=== PATIENT | female | born 2000 | race Two or more races ===

== ENCOUNTER 2020-06-02 08:24 | Emergency (ER) | payer MEDICAID, SELFPAY ==
[2020-06-02 08:43] VITALS: BP 133/64; PULSE 89; RESP 15; TEMP 36.1; O2SAT 99; BMI 32.9
--- NOTE | 2020-06-02 08:54 | ED.URI ---
HPI - URI/Sore Throat General Chief Complaint: Upper Respiratory Symptoms <NIKOLAI Walton Last Filed: 06/02/20 16:01> Stated Complaint: cough <NIKOLAI Walton Last Filed: 06/02/20 16:01> Time Seen by Provider: 06/02/20 08:53 <NIKOLAI Walton Last Filed: 06/02/20 16:01> Source: patient <NIKOLAI Walton Last Filed: 06/02/20 16:01> Mode of arrival: ambulatory <NIKOLAI Walton Last Filed: 06/02/20 16:01> Limitations: no limitations <NIKOLAI Walton Filed: 06/02/20 16:01> History of Present Illness HPI Narrative: Patient presents to ED for dry cough, sore throat, and body aches. Patient states no recent travel outside the country or going across state lines. Patient states her also having URI symptoms. Patient states no chest pain or shortness of breath. <NIKOLAI Walton Last Filed: 06/02/20 16:01> Related Data Allergies/Adverse Reactions: Allergies Allergy/AdvReac Type Severity Reaction Status Date / Time No Known Allergies Allergy Unverified 04/02/20 19:50 [No Known Allergies*] <NIKOLAI Walton Last Filed: 06/02/20 16:01> Review of Systems Review of Systems: Yes all other systems are reviewed and are negative <NIKOLAI Walton Last Filed: 06/02/20 16:01> Constitutional: Constitutional: Reports as per HPI, Reports no additional constitutional complaints, Reports body ache(s) and Reports chills <NIKOLAI Walton Last Filed: 06/02/20 16:01> Eyes: Eyes: Reports as per HPI and Reports no additional eye complaints <NIKOLAI Walton Last Filed: 06/02/20 16:01> ENT: Reports system reviewed and no additional complaints, except as documented, Reports as per HPI and Reports sore throat <NIKOLAI Walton Last Filed: 06/02/20 16:01> Cardiovascular: Cardiovascular: Reports as per HPI, Reports no additional cardiovascular complaints and Denies dyspnea <NIKOLAI Walton Last Filed: 06/02/20 16:01> Respiratory: Respiratory: Reports as per HPI, Reports no additional respiratory complaints, Reports cough, Denies pain on inspiration, Denies pain with cough and Denies dyspnea <NIKOLAI Walton - Last Filed: 06/02/20 16:01> Gastrointestinal: Gastrointestinal: Reports as per HPI and Reports no additional gastrointestinal complaints <NIKOLAI Walton Last Filed: 06/02/20 16:01> Genitourinary: Genitourinary: Reports no additional female genitourinary complaints and Reports as per HPI <NIKOLAI Walton Last Filed: 06/02/20 16:01> Musculoskeletal: Musculoskeletal: Reports no additional musculoskeletal complaints and Reports as per HPI <NIKOLAI Walton Last Filed: 06/02/20 16:01> Neurologic: Reports system reviewed and no additional complaints, except as documented and Reports as per HPI <NIKOLAI Walton Last Filed: 06/02/20 16:01> Psychiatric: Psychiatric: Reports no additional psychiatric complaints and Reports as per HPI <NIKOLAI Walton - Last Filed: 06/02/20 16:01> [facility] Social History Social History: Social History Advance Directives: No Advance Directives Information Provided: Yes <NIKOLAI Walton - Last Filed: 06/02/20 16:01> Physical Exam Vital Signs: Vital Signs: Last Vital Signs Temp 97 F 06/02/20 08:43 Pulse 89 06/02/20 08:43 Resp 15 06/02/20 08:43 BP 133/64 06/02/20 08:43 Pulse Ox 99 06/02/20 08:43 Body Mass Index 32.9 <NIKOLAI Walton - Last Filed: 06/02/20 16:01> Vital Signs: Last Vital Signs Temp 97 F 06/02/20 08:43 Pulse 89 06/02/20 08:43 Resp 15 06/02/20 08:43 BP 133/64 06/02/20 08:43 Pulse Ox 99 06/02/20 08:43 Body Mass Index 32.9 <Lance Norwood MD - Last Filed: 06/08/20 15:57> Const: General: cooperative, healthy appearing, comfortable, no acute distress, well developed and alert <NIKOLAI Walton Last Filed: 06/02/20 16:> Orientation/consciousness: patient oriented x3 <NIKOLAI Walton Filed: 06/02/20 16:> HENMT: Head: Yes normal to inspection, Yes No palpable skull fracture present, Yes atraumatic, No contusion, No hematoma and No Temporal artery tenderness present <NIKOLAI Walton Last Filed: 06/02/20 16:> Ears: hearing grossly normal bilaterally, external ears normal and TM's normal bilaterally <Tim Gleason [facility] [place] Last Filed: 06/02/20 16:> Throat: Yes posterior oropharynx normal, Yes tonsils normal and Yes uvula midline <NIKOLAI Walton Filed: 06/02/20 16:> Eyes: General: appearance normal, both eyes and all related structures <NIKOLAI Walton Filed: 06/02/20 16:> Visual Carmona: normal visual carmona by confrontation <NIKOLAI Walton Filed: 06/02/20 16:01> Neck: Neck: Yes normal visual inspection, Yes full ROM, Yes no lymphadenopathy, Yes no meningeal signs, Yes trachea midline and No tender <NIKOLAI Walton Filed: 06/02/20 16:> Chest: Chest palpation & inspection: normal inspection of the chest and normal palpation of entire chest wall <NIKOLAI Walton Filed: 06/02/20 16:> Resp: Effort & Inspection: normal respiratory effort and not able to speak in complete sentences <NIKOLAI Walton Filed: 06/02/20 16:> Auscultation: clear to auscultation bilaterally, no crackles, no rales, no rhonchi and no wheezes <NIKOLAI Walton Filed: 06/02/20 16:> Cardio: Jugular venous distension: no JVD <NIKOLAI Walton Filed: 06/02/20 16:> Heart sounds: S1 normal heart sound present and S2 normal heart sound present <NIKOLAI Walton Filed: 06/02/20 16:01> GI: Inspection: Yes normal to inspection and No abdominal wall ecchymosis <NIKOLAI Walton Last Filed: 06/02/20 16:01> Palpation (GI): Soft to palpation, not firm, nontender, no guarding and not rigid <NIKOLAI Walton Last Filed: 06/02/20 16:01> : General: No CVA tenderness and Yes no CVA tenderness <NIKOLAI Walton Last Filed: 06/02/20 16:01> Back/Spine/Pelvis: Back: no CVA tenderness, No CVA tenderness and No back tenderness <NIKOLAI Walton Last Filed: 06/02/20 16:01> Skin: General skin exam: no rashes or lesions noted <NIKOLAI Walton Last Filed: 06/02/20 16:01> Neuro: General: patient oriented x3, gait normal, no meningeal signs and CN's II-XI intact bilaterally <NIKOLAI Walton Last Filed: 06/02/20 16:01> Cranial nerves: Yes CN's II-XII intact bilaterally <NIKOLAI Walton Last Filed: 06/02/20 16:01> Extrem: General: Yes normal to inspection and Yes full ROM <NIKOLAI Walton Last Filed: 06/02/20 16:01> Psych: Appearance: grossly normal, well kempt and not disheveled <NIKOLAI Walton Last Filed: 06/02/20 16:01> Course Course Course Narrative: Patient will have COVID swab sent. Chest x-ray not indicated. Patient vital signs are stable. <NIKOLAI Walton Last Filed: 06/02/20 16:01> I have reviewed the chart <Lance Norwood MD - Last Filed: 06/08/20 15:57> Reevaluation(s) Reevaluation #1: Patient educated on self-isolation. Patient is swabbed for the COVID-19 virus. <NIKOLAI Walton Last Filed: 06/02/20 16:01> Time: 08:57 <NIKOLAI Walton Last Filed: 06/02/20 16:01> MDM - URI/Sore Throat MDM Narrative Medical decision making narrative: viral syndrome. URI <NIKOLAI Walton Last Filed: 06/02/20 16:01> Lab Data Labs: Lab Results 06/02/20 Range/Units 09:14 COVID-19 PCR NOT DETECTED (NOT DETECTED) <NIKOLAI Walton - Last Filed: 06/02/20 16:01> Lab Results 06/02/20 Range/Units 09:14 COVID-19 PCR NOT DETECTED (NOT DETECTED) <Lance Norwood MD - Last Filed: 06/08/20 15:57> Discharge Plan Discharge Clinical Impression: Upper respiratory infection <NIKOLAI Walton - Last Filed: 06/02/20 16:01> Patient Disposition: Home, Self-Care <NIKOLAI Walton - Last Filed: 06/02/20 16:01> Instructions: Upper Respiratory Infection (ED), Viral Syndrome (ED) <NIKOLAI Walton - Last Filed: 06/02/20 16:01> Additional Instructions: return to the ED for any chest pain, shortness of breath, weakness, intractable fever, chills, or any other concerning symptoms. Please follow-up with your PCP. recommend 14 days self-isolation if COVID test come back positive <NIKOLAI Walton - Last Filed: 06/02/20 16:01> Stand Alone Forms: Work/School Release <NIKOLAI Walton - Last Filed: 06/02/20 16:01> Interventions: ED Discharge Assessment Last Done: 06/02/20 09:20 <NIKOLAI Walton - Last Filed: 06/02/20 16:01> Discharge Date/Time: 06/02/20 09:26 <NIKOLAI Walton - Last Filed: 06/02/20 16:01> Print Language: Kinyarwanda <NIKOLAI Walton - Last Filed: 06/02/20 16:01>
== END 2020-06-02 09:26 | disposition home or self-care (01) ==
PROVIDERS: Physician Assistant; Emergency Provider Emergency Medicine
DX: J06.9 Acute upper respiratory infection, unspecified (principal); B34.9 Viral infection, unspecified; R05 Cough; M79.10 Myalgia, unspecified site; Z20.828 Contact with and (suspected) exposure to other viral communicable diseases
CPT/HCPCS: 99283; U0003

== ENCOUNTER 2020-07-11 23:06 | Emergency (ER) | payer MEDICAID, SELFPAY ==
[2020-07-11 23:08] VITALS: BP 146/75; PULSE 98; RESP 18; TEMP 36.9; O2SAT 98; BMI 29.9
[2020-07-12 00:36] LABS: Glucose Urine UA NEG (NEG); Leukocyte Esterase Urine NEG (NEG); Nitrite Urine NEG (NEG); PH 6.5 (5.0-8.0); Specific Gravity - Urine 1.025 (1.005-1.025); Urine Blood TRACE (NEG); Urine Ketones NEG (NEG); Urine Protein NEG (NEG-TRACE)
[2020-07-12 00:40] LABS: Appearance Urine CLEAR; Color Urine YELLOW
[2020-07-12 00:44] LABS: Bacteria Urine TRACE /LPF; Squamous Epithelial Cell Urine TRACE /LPF
[2020-07-12 00:45] LABS: UPreg QC Valid YES; Urine Pregnancy NEGATIVE (NEGATIVE)
--- NOTE | 2020-07-12 00:58 | CT_ITS ---
EXAMINATION: CT ABDOMEN AND PELVIS WITH CONTRAST CLINICAL INFORMATION: Right lower quadrant and suprapubic pain. COMPARISON: None. TECHNIQUE: Contiguous axial thin section helical images of the abdomen and pelvis were performed following the administration of 85 mL of intravenous Omnipaque 350. The data set was reformatted in the coronal and sagittal planes and reviewed on an independent workstation. DLP: 757 mGy-cm. FINDINGS: The visualized lung bases are clear. The visualized portions of the heart are unremarkable. The liver is of normal size and attenuation without focal lesions nor intrahepatic biliary ductal dilation. A normal gallbladder is identified. There is no wall thickening or discernible pericholecystic fluid. The spleen, pancreas, adrenal glands are unremarkable. Both kidneys are of normal size and attenuation without hydronephrosis or nephrolithiasis. Following the administration of IV contrast, prompt symmetric nephrograms are displayed. There is no abdominal free fluid. There is neither mesenteric nor retroperitoneal lymphadenopathy. Normal unopacified loops of small and large bowel are identified. A normal appendix is identified. There is a 3.1 cm left ovarian cyst. There is no pelvic free fluid. The urinary bladder is unremarkable. There is neither pelvic nor inguinal lymphadenopathy. Bone windows: Neither sclerotic nor lytic bone lesions are identified. CT/CT abdomen pelvis w con IMPRESSION: Unremarkable abdominal and pelvic CT. Automated exposure control (Care Dose) Adjustment of the mA and/or kv according to patient size (this includes techniques or standardized protocols for targeted exams where dose is matched to indication / reason for exam; i.e. extremities or head).
--- NOTE | 2020-07-12 01:01 | ED.ABDPAIN ---
HPI - Abdominal Pain General Chief Complaint: Abdominal Pain Stated Complaint: Pelvic pain Time Seen by Provider: 07/12/20 00:51 Source: patient Mode of arrival: ambulatory Limitations: no limitations History of Present Illness HPI narrative: Patient comes to emergency room complaining of 3 days of suprapubic and right lower quadrant pain. Patient states that to her knowledge, she has no history of ovarian cysts. Patient states her menstrual period is irregular, has not had a menstrual period in over 6 months, 3 days ago she thought she was having premenstrual cramps, however she is still having constant, nonradiating, pulsating abdominal pain. Patient denies dysuria. Patient also complaining of nausea, no vomiting or diarrhea. Patient states she is sexually active, concerned that she may be . Patient states she is not concerned with having a sexually transmitted disease, denies vaginal discharge Related Data Allergies Allergy/AdvReac Type Severity Reaction Status Date / Time No Known Allergies Allergy Unverified 04/02/20 19:50 [No Known Allergies*] Review of Systems Review of Systems Constitutional : No Weight loss, No Fever, No Chills, No Night Sweats, No Fatigue, No Malaise ENT/Mouth : No Hearing loss, No Ear Pain, No Nasal Congestion, No Sinus Pain, No Hoarseness, No sore throat, No Rhinorrhea, No Swallowing Difficulty Eyes: No Eye Pain, No Swelling, No Redness, No Foreign Body, No Discharge, No Vision Changes Cardiovascular : No Chest Pain, No SOB, No Dyspnea on Exertion, No Orthopnea, No Edema, No Palpitations Respiratory : No Cough, No Sputum, No Wheezing, No Smoke Exposure, No Dyspnea Gastrointestinal : Complaining of Nausea, No Vomiting, No Diarrhea, No Constipation, complaining of suprapubic and right lower quadrant pain. No Hematochezia, No Melena Genitourinary : no irregular bleeding, No Dysuria, No Urinary Frequency, No Hematuria, No Urinary Incontinence, No Urgency, No Flank Pain, No Urinary Flow Changes, No Hesitancy Musculoskeletal : No joint pain, No Myalgias, No Joint Swelling Skin : No Skin Lesions, No rash Neuro : No Weakness, No Numbness, No Paresthesias, No Loss of Consciousness, No Dizziness, No Headache Psych : No Anxiety/Panic, No Depression, No SI/HI/AH/VH, No Social Issues, Heme/Lymph: No Bruising, No Bleeding,No Lymphadenopathy Endocrine : No Polyuria, No Polydipsia, No Temperature Intolerance Physical Exam Vital Signs: Vital Signs: Last Vital Signs Temp 98.5 F 07/11/20 23:08 Pulse 98 07/11/20 23:08 Resp 18 07/11/20 23:08 BP 146/75 H 07/11/20 23:08 Pulse Ox 98 07/11/20 23:08 Body Mass Index 29.9 Appearance: Alert. Oriented X3. No acute distress. Eyes: Pupils equal, round and reactive to light. ENT: Pharynx normal. Neck: Normal inspection. Neck supple. No lymph nodes noted. No crepitus CVS: Normal heart rate and rhythm. Pulses normal. Normal S1 and S2 Respiratory: No respiratory distress. Breath sounds normal. No Wheezing. No rales Abdomen: Soft , tender to palpation over suprapubic and right lower quadrant, no rebound, no guarding, No rigidity. No distention. good BS x4 Skin: Skin warm and dry. Normal skin color. Normal skin turgor. Extremities: No lower extremity edema. No lower extremity edema. No Lacerations. No Rash Neuro: Oriented X 3. No motor deficit. No sensory deficit. Moving all extermities. No slurred speech. Course Course Course Narrative: CT scan and urinalysis pending. Sign-out given to Dr. Iverson. MDM - Abdominal Pain Lab Data Result diagrams: 07/12/20 01:12 07/12/20 01:12 Labs: Lab Results 07/12/20 07/12/20 07/12/20 Range/Units 00:29 01:12 01:12 WBC 7.6 (4.8-10.8) X10*3/uL RBC 4.63 (4.20-5.50) X10*6/uL Hgb 13.8 (12.0-16.0) g/dl Hct 40.0 (37-47) % MCV 86.4 (80-98) fL MCH 29.8 (27.0-33.0) pg MCHC 34.5 (31.0-35.0) g/dl RDW 11.9 (11.0-16.0) % Plt Count 202 (160-400) X10*3/uL MPV 10.3 (9.4-12.3) fL Immature Gran % (Auto) 0.4 (0.0-0.4) % Neut % (Auto) 59.0 (45-73) % Lymph % (Auto) 31.8 (20-40) % [place] % (Auto) 6.1 (2-11) % Eos % (Auto) 2.0 (0-4) % Baso % (Auto) 0.7 (0-2) % Lymph # (Auto) 2.4 (1.2-4.9) X10*3/uL [place] # (Auto) 0.5 (0.1-1.2) X10*3/uL Eos # (Auto) 0.2 (0.0-0.4) X10*3/uL Baso # (Auto) 0.1 (0.0-0.2) X10*3/uL Abs Immat Gran (auto) 0.03 (0.00-0.03) X10*3/uL Absolute Neuts (auto) 4.5 (2.0-8.3) X10*3/uL Absolute Nucleated RBC 0.000 (0.0-0.012) X10*3/uL Nucleated RBC % (auto) 0.0 (0.0-0.2) /100WBC Sodium 138 (135-145) mmol/L Potassium 3.9 (3.3-5.1) mmol/l Chloride 104 (96-108) mmol/L Carbon Dioxide 25 (22-29) mmol/L Anion Gap 13 (12-20) BUN 11 (9-16) mg/dL Creatinine 0.81 (0.5-1.4) mg/dL Estim Creat Clear Calc 115.9 Estimated GFR > 60 Random Glucose 91 (60-115) mg/dL Calcium 9.1 (8.4-10.2) mg/dL Total Bilirubin 0.2 (0.0-1.0) mg/dL Direct Bilirubin < 0.2 (0.0-0.5) mg/dL AST 17 (5-31) U/L ALT 18 (0-31) U/L Alkaline Phosphatase 75 (39-117) U/L Total Protein 7.1 (6.5-8.0) g/dL Albumin 4.5 (3.5-5.0) g/dL Lipase 50 (8-78) U/L Urine Color YELLOW Urine Appearance CLEAR Urine pH 6.5 (5.0-8.0) Ur Specific [place] 1.025 (1.005-1.025) Urine Protein NEG (NEG-TRACE) MG/DL Urine Glucose (UA) NEG (NEG) MG/DL Urine Ketones NEG (NEG) MG/DL Urine Blood TRACE (NEG) Urine Nitrite NEG (NEG) Ur Leukocyte Esterase NEG (NEG) Urine RBC 1-4 (0) /HPF Urine WBC 1-4 (0-4) /HPF Ur Squamous Epith Cells TRACE /LPF Urine Bacteria TRACE /LPF Urine Test NEGATIVE (NEGATIVE) Discharge Plan Discharge Clinical Impression: Abdominal pain PMFSH Past Medical History Medical History No known health problems Social History Social History Alcohol intake: never Smoking Status: Never smoker Use of substances other than those prescribed or required for medical reasons: No Advance Directives: No Advance Directives Information Provided: No
[2020-07-12 01:19] LABS: Basophils Absolute Auto 0.1 X10*3/uL (0.0-0.2); Basophils Percent Auto 0.7 % (0-2); Eosinophils Absolute Auto 0.2 X10*3/uL (0.0-0.4); Hemoglobin 13.8 g/dl (12.0-16.0); Imm Gran Abs Auto 0.03 X10*3/uL (0.00-0.03); Imm Gran Pct Auto 0.4 % (0.0-0.4); Lymphocytes Absolute Auto 2.4 X10*3/uL (1.2-4.9); Lymphocytes Percent Auto 31.8 % (20-40); MANUAL DIFF FLAG NO; Mean Corpuscular HGB Conc 34.5 g/dl (31.0-35.0); Mean Corpuscular Hemoglobin 29.8 pg (27.0-33.0); Mean Corpuscular Volume 86.4 fL (80-98); Mean Platelet Volume 10.3 fL (9.4-12.3); Monocytes Absolute Auto 0.5 X10*3/uL (0.1-1.2); Monocytes Percent Auto 6.1 % (2-11); Neutrophils Absolute Auto 4.5 X10*3/uL (2.0-8.3); Platelet Count 202 X10*3/uL (160-400); Red Blood Count 4.63 X10*6/uL (4.20-5.50); Red Cell Distribution Width 11.9 % (11.0-16.0); White Blood Count 7.6 X10*3/uL (4.8-10.8)
[2020-07-12] MEDS: Ketorolac Tromethamine 30 MG/ML VIAL IVPUSH (01:31)
[2020-07-12] MEDS: ondansetron HCL 4 MG/2 ML VIAL IVPUSH (01:32)
[2020-07-12 01:42] LABS: Alanine Aminotransferase 18 U/L (0-31); Albumin Level 4.5 g/dL (3.5-5.0); Alkaline Phosphatase 75 U/L (39-117); Anion Gap 13 (12-20); Aspartate Amino Transferase 17 U/L (5-31); Bilirubin Direct < 0.2 mg/dL (0.0-0.5); Bilirubin Total 0.2 mg/dL (0.0-1.0); Blood Urea Nitrogen 11 mg/dL (9-16); Calcium 9.1 mg/dL (8.4-10.2); Carbon Dioxide 25 mmol/L (22-29); Chloride 104 mmol/L (96-108); Creatinine Clr Calc Pharmacy 115.9; Estimated Glomerular Filt Rate > 60; Glucose Random 91 mg/dL (60-115); Lipase 50 U/L (8-78); Potassium 3.9 mmol/l (3.3-5.1); Sodium 138 mmol/L (135-145); Total Protein 7.1 g/dL (6.5-8.0)
[2020-07-12] MEDS: iohexoL 350 MG/ML 100 ML INFUS..BTL 85 ML IV (02:02)
[2020-07-12 02:53] VITALS: BP 136/64; PULSE 89; RESP 16; O2SAT 99
== END 2020-07-12 03:04 | disposition home or self-care (01) ==
PROVIDERS: Student in an Organized Health Care Education/Training Program; Emergency Provider Emergency Medicine
DX: R10.31 Right lower quadrant pain (principal)
CPT/HCPCS: 36415; 74177; 80048; 80076; 81001; 81025; 83690; 85025; 96374; 96375; 99284; J1885; J2405; Q9967

== ENCOUNTER 2020-08-19 14:11 | Outpatient (REF) | payer MEDICAID, SELFPAY ==
[2020-08-20 17:32] LABS: C. trachomatis RNA TMA NOT DETECTED (NOT DETECTED); N. gonorrhoeae RNA TMA NOT DETECTED (NOT DETECTED)
[2020-08-27 06:07] LABS: HPV 16 RNA NOT DETECTED (NOT DETECTED); HPV mRNA E6/E7 rflx Detected (Not Detected)
== END 2020-08-19 14:12 | disposition home or self-care (01) ==
LOC: HO.LAB 14:11
PROVIDERS: PCP Internal Medicine; Visit Provider Advanced Practice Midwife
DX: Z01.419 Encounter for gynecological examination (general) (routine) without abnormal findings (principal); N91.1 Secondary amenorrhea; E66.9 Obesity, unspecified
CPT/HCPCS: 36415; 87210; 87491; 87591; 87624; 87625; 88141; 88142

== ENCOUNTER 2020-08-28 09:53 | Emergency (ER) | payer MEDICAID, SELFPAY ==
--- NOTE | ~2020-08-28 | XR_ITS ---
EXAMINATION: XR FOOT, LEFT CLINICAL INFORMATION: Trauma, pain COMPARISON: None TECHNIQUE: 3 views of the left foot. FINDINGS: There is no acute or healing fracture, dislocation, or destructive process. No focal joint narrowing or erosive change. There is moderate posterior calcaneal spur. The retrocalcaneal recess is preserved. XR/XR foot LT min 3V IMPRESSION: 1. No fracture or dislocation. 2. Posterior calcaneal spur.
[2020-08-28 10:17] VITALS: BP 113/69; PULSE 77; RESP 18; TEMP 36.7; O2SAT 98; BMI 31.6
--- NOTE | 2020-08-28 10:37 | ED.LOWEXIN ---
HPI - Extremity Injury (Lower) General Chief Complaint: Extremity Injury, Lower Stated Complaint: L FOOT PAIN Time Seen by Provider: 08/28/20 10:16 Source: patient and educational interpreter Mode of arrival: ambulatory Limitations: language barrier History of Present Illness HPI Narrative: 20-year-old female here with left ankle and foot pain times several days. She denies any injury or trauma. She does note she works on her feet for long hours and has pain which is worse some at the end of the day with weight-bearing. No numbness or tingling or redness or fevers or chills. Also complaining of left shoulder and arm numbness which is intermittent and worsened while sleeping for the last 2-3 months. 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 Related Data Previous Rx's Medication Instructions Recorded medroxyprogesterone 10 mg tablet 10 mg PO DAILY #10 tab 08/21/20 cyclobenzaprine 10 mg PO TID PRN #10 tab 08/28/20 ibuprofen 600 mg PO Q8H PRN #10 tab 08/28/20 Allergies Allergy/AdvReac Type Severity Reaction Status Date / Time No Known Allergies Allergy Verified 08/19/20 14:38 [No Known Allergies*] Review of Systems Review of Systems: Yes all other systems are reviewed and are negative Constitutional: Constitutional: Reports no additional constitutional complaints, Denies body ache(s), Denies chills, Denies fever(s), Denies headache(s) and Denies weakness Eyes: Eyes: Reports no additional eye complaints and Denies change in vision ENT: Reports system reviewed and no additional complaints, except as documented, Denies dizziness, Denies headache(s), Denies nasal congestion, Denies nasal discharge and Denies neck pain Cardiovascular: Cardiovascular: Reports no additional cardiovascular complaints, Denies chest pain, Denies leg edema and Denies dyspnea Respiratory: Respiratory: Reports no additional respiratory complaints, Denies cough and Denies dyspnea Gastrointestinal: Gastrointestinal: Reports no additional gastrointestinal complaints, Denies abdominal pain, Denies diarrhea, Denies nausea and Denies vomiting Genitourinary: Genitourinary: Reports no additional female genitourinary complaints and Denies urinary incontinence Musculoskeletal: Musculoskeletal: Reports no additional musculoskeletal complaints, Denies back pain, Reports arthralgias, Denies joint swelling, Denies neck pain, Reports numbness and Reports tingling Integumentary/Breasts: Skin/Breast: Reports system reviewed and no additional complaints, except as docu and Denies rash Neurologic: Reports system reviewed and no additional complaints, except as documented, Denies Abnormal speech present, Denies dizziness, Denies headache(s), Reports numbness, Reports tingling and Denies weakness PMFSH Past Medical History Attestation statement: The following information was validated with the patient. Source: old records reviewed and nursing notes reviewed Medical History No known health problems Social History Social History (Updated 08/19/20 @ 14:39 by LILLY Aponte) Alcohol intake: never Smoking Status: Never smoker Advance Directives: No Advance Directives Information Provided: No Gender identity: female Physical Exam Vital Signs: Vital Signs: Last Vital Signs Temp 98.1 F 08/28/20 10:17 Pulse 77 08/28/20 10:17 Resp 18 08/28/20 10:17 BP 113/69 08/28/20 10:17 Pulse Ox 98 08/28/20 10:17 Body Mass Index 31.6 Const: General: cooperative, healthy appearing, comfortable and no acute distress Orientation/consciousness: patient oriented x3 Limitations: no limitations HENMT: Head: Yes normal to inspection Ears: hearing grossly normal bilaterally General nose exam: Normal external nose present Face and sinus: Yes normal facial exam Mouth: Normal oral and palatal mucosa present Throat: Yes posterior oropharynx normal Eyes: General: appearance normal, both eyes and all related structures Pupils: Equal, round and reactive pupils present Neck: Other: Full range of motion of cervical spine. Patient has tenderness over the left trapezius with a palpable muscle spasm. Neck: Yes normal visual inspection Chest: Chest palpation & inspection: normal inspection of the chest Resp: Effort & Inspection: normal respiratory effort Auscultation: clear to auscultation bilaterally Cardio: Rate: regular rate Rhythm: regular rhythm Peripheral pulses: Peripheral pulses 2+ throughout GI: Inspection: Yes normal to inspection Palpation (GI): Soft to palpation and nontender Auscultation: normal bowel sounds Back/Spine/Pelvis: Thoracic/Lumbar Spine: thoracic and lumbar spine normal to inspection Skin: General skin exam: no rashes or lesions noted Neuro: General: patient oriented x3, Normal light touch and pain sensation, no focal motor deficits and normal sensation to monofilament Cranial nerves: Yes CN's II-XII intact bilaterally, Yes Equal, round and reactive pupils present, Yes Bilaterally intact EOM present, Yes Nystagmus not present, Yes Normal facial strength present and Yes Midline tongue present Cognition (Neuro): normal cognition Speech: No Abnormal speech present Gait exam (Neuro): Normal gait present Motor exam (neuro): 5/5 motor strength present throughout Sensory Exam: Normal double simultaneous stimulation for sensation Extrem: Other: Pain to the posterior left ankle which is worsened with plantar flexion and dorsiflexion. Negative Wylie's test. No calf pain General: Yes normal to inspection Left upper extremity: normal to inspection (sensation intact. 2 +distal pulses ), full ROM and normal capillary refill; no cyanosis and no edema Course Course Course Narrative: Atraumatic left ankle pain times weeks to months, no injury or trauma. Works long hours on her feet. X-ray shows no fracture dislocation. There is an incidental finding of a posterior old heel spur. This is not likely causing the patient's pain as she does not have pain over this area. She does have tenderness over the Achilles tendon with a negative Wylie test so less likely rupture. Likely sprain. Recommend limited weight-bearing for few days and supportive care at home. Follow-up with orthopedics if no improvement in symptoms. Also complaining of intermittent numbness and tingling to the left upper extremity which is worsened at night time with no injury or trauma. Normal neurological exam. On exam has tenderness of the trapezius with palpable muscle spasm. More likely radiculopathy vs impinegement. Low concern for underlying ICH vs lesion vs CVA with normal neuro exam, length of symptoms. Reviewed worrisome signs and symptoms and when to return to the emergency department. Comfortable with discharge home. MDM - Extremity Injury (Lower) Medical Records Attestation: I reviewed the patient's medical records. Lab Data Attestation: I reviewed the patient's lab results. Imaging Data foot xray: Attestation: I personally reviewed and interpreted this imaging study as follows: Radiologist's impression: EXAMINATION: XR FOOT, LEFT CLINICAL INFORMATION: Trauma, pain COMPARISON: None TECHNIQUE: 3 views of the left foot. FINDINGS: There is no acute or healing fracture, dislocation, or destructive process. No focal joint narrowing or erosive change. There is moderate posterior calcaneal spur. The retrocalcaneal recess is preserved. XR/XR foot LT min 3V IMPRESSION: 1. No fracture or dislocation. 2. Posterior calcaneal spur. Discharge Plan Discharge Clinical Impression: Strain of Achilles tendon, Radiculopathy affecting upper extremity Patient Disposition: Home, Self-Care Instructions: Cervical Radiculopathy (ED), Ankle Strain (ED) Additional Instructions: Heat to upper extremity Ice to the ankle Rest, limit weight bearing for a few days, ice Prescriptions: New cyclobenzaprine 10 mg tablet 10 mg PO TID PRN (Reason: muscle spasm) Qty: 10 RF: 0 ibuprofen 600 mg tablet 600 mg PO Q8H PRN (Reason: pain) Qty: 10 RF: 0 No Action medroxyprogesterone [Provera] 10 mg tablet 10 mg PO DAILY Qty: 10 RF: 1 Referrals: Wil Castellon MD [Primary Care Provider] - 2 days Stand Alone Forms: Work/School Release Interventions: ED Discharge Assessment Last Done: 08/28/20 11:21 Discharge Date/Time: 08/28/20 11:22 Print Language: Salvadorean
== END 2020-08-28 11:22 | disposition home or self-care (01) ==
PROVIDERS: Emergency Provider Emergency Medicine Emergency Medical Services; PCP Internal Medicine
DX: S86.012A Strain of left Achilles tendon, initial encounter (principal); X50.3XXA Overexertion from repetitive movements, initial encounter; M54.12 Radiculopathy, cervical region; Y93.89 Activity, other specified; Y92.9 Unspecified place or not applicable; Y99.9 Unspecified external cause status
CPT/HCPCS: 73630; 99283

== ENCOUNTER → 2020-09-08 13:56 | Outpatient (BNVA) | payer MEDICAID, SELFPAY | PROVIDERS: PCP Internal Medicine; Visit Provider Obstetrics & Gynecology | DX: R87.622 Low grade squamous intraepithelial lesion on cytologic smear of vagina (LGSIL) (principal); N91.2 Amenorrhea, unspecified | CPT/HCPCS: 99212 ==

== ENCOUNTER 2020-11-05 16:48 | Emergency (ER) | payer OTHER, SELFPAY ==
--- NOTE | ~2020-11-05 | XR_ITS ---
EXAMINATION: XR KNEE, RIGHT CLINICAL INFORMATION: Right knee pain after being struck with a cart COMPARISON: None TECHNIQUE: Four views of the right knee. FINDINGS: Bones and soft tissues are normal. No fracture or joint effusion. Alignment is anatomic. Joint spaces are well maintained. No abnormal soft tissue calcification. XR/XR knee RT 4V IMPRESSION: Normal right knee.
[2020-11-05 17:08] VITALS: BP 130/73; PULSE 80; RESP 16; TEMP 36.5; O2SAT 100; BMI 29.9
--- NOTE | 2020-11-05 17:50 | ED_ITS ---
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 [age] year female who was working, patient was in a squatting position when shopping cart was pushed and hit the right knee. Patient was able to get up and walk after that. Patient is complaining of right knee pain. Related Data Previous Rx's Medication Instructions Recorded medroxyprogesterone 10 mg tablet 10 mg PO DAILY #10 tab 08/21/20 cyclobenzaprine 10 mg PO TID PRN #10 tab 08/28/20 ibuprofen 600 mg PO Q8H PRN #10 tab 08/28/20 conjugated estrogens 1.25 mg tablet 1.25 mg PO DAILY 21 Days #21 tab 09/08/20 medroxyprogesterone 10 mg tablet 10 mg PO DAILY 10 Days #10 tab 09/08/20 Allergies Allergy/AdvReac Type Severity Reaction Status Date / Time No Known Allergies Allergy Verified 09/08/20 14:38 [No Known Allergies*] Review of Systems Review of Systems: All other systems are reviewed and are negative Constitutional: Reports as per HPI and Reports no additional constitutional complaints Eyes: Reports as per HPI and Reports no additional eye complaints Reports system reviewed and no additional complaints, except as documented Cardiovascular: Reports as per HPI and Reports no additional cardiovascular complaints Respiratory: Reports as per HPI and Reports no additional respiratory complaints Gastrointestinal: Reports as per HPI and Reports no additional gastrointestinal complaints Genitourinary: Reports no additional female genitourinary complaints Musculoskeletal: Reports no additional musculoskeletal complaints Skin/Breast: Reports system reviewed and no additional complaints, except as docu Psychiatric: Reports no additional psychiatric complaints Endocrine: Reports no additional endocrine complaints Hematologic/Lymphatic: Reports no additional hematologic/lymphatic complaints Allergic/Immunologic: Reports no additional allergic/immunologic complaints Reports system reviewed and no additional complaints, except as documented and Reports Abnormal speech present [facility] Past Medical History Medical History No known health problems Family History Family History Maternal Grandmother Breast cancer Social History Social History Alcohol intake: never Smoking Status: Never smoker Advance Directives: No Advance Directives Information Provided: No Gender identity: female Physical Exam Vital Signs: Vital Signs: Last Vital Signs Temp 97.7 F 11/05/20 17:08 Pulse 80 11/05/20 17:08 Resp 16 11/05/20 17:08 BP 130/73 11/05/20 17:08 Pulse Ox 100 11/05/20 17:08 Body Mass Index 29.9 Vital signs have been reviewed as appeared to be correct. Blood pressure normal. Heart rate normal. Respiration rate normal. Temperature normal. Oxygen saturation normal. Appearance: Alert. Oriented X3. No acute distress. Head: Normal external exam. Normocephalic. Atraumatic. No [place] signs noted. No raccoon eyes noted Eyes: PERRLA. EOMI. Conjunctiva and sclera normal. Eyelids normal. ENT: TM's Normal. Pharynx normal. Uvula midline. Moist mucous membranes. No trismus noted. No drooling noted. No muffled voice noted. Neck: Normal inspection. Neck supple. FROM. No adenopathy. Thyroid Normal. No meningeal signs. No neck mass noted. CVS: Normal heart rate and rhythm. Heart sound normal. No murmurs noted. Pulses normal throughout. Respiratory: No respiratory distress. Painless inspiration. Breath sounds normal. No wheezes/rales/rhonchi noted. Chest nontender. No accessory muscle usage noted or decreased air movement noted. Abdomen: Soft and nontender. Bowel sounds normal in all 4 quadrants. No distention noted. No organomegaly noted. No visible injury noted. Back: No CVA tenderness. Full range of motion noted. Skin: Skin warm and dry. Normal skin color. Normal skin turgor. No rashes/lesions/lacerations noted. Extremities: No lower extremity edema. Extremities exhibit normal range of motion. Extremities nontender. Neuro: Oriented X 3. No motor deficit. No sensory deficit. Reflexes normal. Course Course Course Narrative: Assessment and plan. Minor injury to right knee, x-ray right knee appear unremarkable, patient is able to ambulate on toes and heels. Advised to use ice/NSAIDs p.r.n. patient can resume her normal function. MDM - Extremity Injury (Lower) Imaging Data Right knee x-ray: Radiologist's impression: No acute fracture. Discharge Plan Discharge Clinical Impression: Contusion of knee Patient Disposition: Home, Self-Care Instructions: Contusion in Adults (ED) Prescriptions: No Action medroxyprogesterone [Provera] 10 mg tablet 10 mg PO DAILY Qty: 10 RF: 1 cyclobenzaprine 10 mg tablet 10 mg PO TID PRN (Reason: muscle spasm) Qty: 10 RF: 0 ibuprofen 600 mg tablet 600 mg PO Q8H PRN (Reason: pain) Qty: 10 RF: 0 Premarin 1.25 mg tablet 1.25 mg PO DAILY 21 Days Qty: 21 RF: 0 medroxyprogesterone [Provera] 10 mg tablet 10 mg PO DAILY 10 Days Qty: 10 RF: 0 Referrals: Wil Castellon MD [Primary Care Provider] - 2 weeks
[2020-11-05 18:33] VITALS: BP 120/84; PULSE 83; RESP 18; TEMP 36.6; O2SAT 98
--- NOTE | 2020-11-05 18:50 | PC.NURSE ---
PT EVALED BY PROVIDER. XRAYS REVIEWED. PT AMBULATORY WITH STEADY GAIT. NEUROVASC INTACT.
== END 2020-11-05 18:52 | disposition home or self-care (01) ==
PROVIDERS: Emergency Provider Emergency Medicine; PCP Internal Medicine
DX: S80.01XA Contusion of right knee, initial encounter (principal); W20.8XXA Other cause of strike by thrown, projected or falling object, initial encounter; Y93.89 Activity, other specified; Y92.512 Supermarket, store or market as the place of occurrence of the external cause; Y99.0 Civilian activity done for income or pay
CPT/HCPCS: 73564; 99283

== ENCOUNTER 2021-04-21 12:19 | Outpatient (REF) | payer OTHER, SELFPAY ==
[2021-04-22 02:52] LABS: CT PCR NOT DETECTED (Not Detect.); NG PCR NOT DETECTED (Not Detect.)
[2021-04-22 10:38] LABS: BV Int Neg Control Negative (Negative); BV Int Pos Control Positive (Positive)
== END 2021-04-21 12:20 | disposition home or self-care (01) ==
LOC: HO.LAB 12:19
PROVIDERS: Visit Provider Obstetrics & Gynecology
DX: N91.2 Amenorrhea, unspecified (principal); R10.2 Pelvic and perineal pain; R87.612 Low grade squamous intraepithelial lesion on cytologic smear of cervix (LGSIL); N76.0 Acute vaginitis; B96.89 Other specified bacterial agents as the cause of diseases classified elsewhere
CPT/HCPCS: 87480; 87491; 87510; 87591; 87660; 99212

== ENCOUNTER 2021-04-21 13:11 | Outpatient (REF) | payer OTHER, SELFPAY ==
[2021-04-21 14:16] LABS: Syphilis Screen Nonreactive (Nonreactive)
[2021-04-22 05:06] LABS: HBsAGNum1 0.17 S/CO (0.00-0.99); HIV AB/AG Nonreactive (Nonreactive); HIV Num 1 0.07 S/CO (0.00-0.99); Hepatitis B Surface Antigen Negative (Negative); ~HepC Num1 0.16 S/CO (0.00-0.79); ~Hepatitis C Antibody Nonreactive (Nonreactive)
== END 2021-04-21 13:12 | disposition home or self-care (01) ==
LOC: HO.LAB 13:11
PROVIDERS: PCP Obstetrics & Gynecology; Visit Provider Obstetrics & Gynecology
DX: N76.0 Acute vaginitis (principal); B96.89 Other specified bacterial agents as the cause of diseases classified elsewhere
CPT/HCPCS: 36415; 86780; 86803; 87340; 87389

== ENCOUNTER → 2021-05-05 16:00 | Outpatient (BNVA) | payer OTHER, SELFPAY | PROVIDERS: PCP Internal Medicine; Visit Provider Obstetrics & Gynecology ==

== ENCOUNTER 2021-05-17 15:34 | Outpatient (REF) | payer OTHER, SELFPAY ==
--- NOTE | ~2021-05-17 | US_ITS ---
EXAMINATION: US PELVIS CLINICAL INFORMATION: Pelvic and perineal pain. COMPARISON: Previous CT of the abdomen and pelvis . TECHNIQUE: Ultrasound of the pelvis is performed using both transabdominal and transvaginal transducers along with Doppler. Transvaginal imaging is performed due to inadequate visualization transabdominally. FINDINGS: The uterus is anteverted and measures 8.5 x 2.5 x 5 cm in dimension. No focal uterine lesion is seen. Endometrial thickness is normal measuring 0.4 cm. The ovaries are normal in size. The right ovary measures 3.5 x 2.3 x 4.3 cm, volume 18 mL. The left ovary measures 3.7 x 2 x 2.7 cm, volume 10 mL. There are multiple small peripheral cysts or follicles seen in both ovaries. Appearance is questionable for polycystic ovarian syndrome. There is no fluid in the pelvis. US/US pelvic and transvaginal IMPRESSION: Question polycystic appearance of the ovaries. Otherwise unremarkable exam.
== END 2021-05-17 15:35 | disposition home or self-care (01) ==
LOC: HO.US 15:34
PROVIDERS: Visit Provider Obstetrics & Gynecology
DX: R10.2 Pelvic and perineal pain (principal)
CPT/HCPCS: 76830; 76856

== ENCOUNTER → 2021-05-24 14:07 | Outpatient (BNVA) | payer OTHER, SELFPAY | PROVIDERS: PCP Internal Medicine; Visit Provider Obstetrics & Gynecology ==

== ENCOUNTER → 2021-06-14 15:43 | Outpatient (BNVA) | payer OTHER, SELFPAY | PROVIDERS: Visit Provider Obstetrics & Gynecology ==

== ENCOUNTER → 2021-09-13 13:44 | Outpatient (BNVA) | payer OTHER, SELFPAY | PROVIDERS: Visit Provider Obstetrics & Gynecology ==

== ENCOUNTER → 2022-01-31 12:21 | Outpatient (BNVA) | payer OTHER, SELFPAY | PROVIDERS: PCP Internal Medicine; Visit Provider Obstetrics & Gynecology | DX: N91.2 Amenorrhea, unspecified (principal) | CPT/HCPCS: 99212 ==

== ENCOUNTER 2022-02-22 15:24 | Outpatient (REF) | payer OTHER, SELFPAY ==
[2022-02-22 16:30] LABS: HCG Quantitative < 2 mIU/mL; TSH reflex Free T4 1.56 uIU/mL (0.32-4.0)
[2022-02-23 07:17] LABS: DHEA Sulfate 301 mcg/dL (14-349)
[2022-02-23 13:36] LABS: Prolactin 7.8 ng/mL
[2022-02-26 17:27] LABS: Testosterone, Free 10.1 pg/mL (0.1-6.4); Testosterone, Total 50 ng/dL (2-45)
== END 2022-02-22 15:25 | disposition home or self-care (01) ==
LOC: HO.LAB 15:24
PROVIDERS: PCP Internal Medicine; Visit Provider Obstetrics & Gynecology
DX: L68.0 Hirsutism (principal); N91.2 Amenorrhea, unspecified
CPT/HCPCS: 36415; 82627; 83498; 84146; 84402; 84403; 84443; 84702

== ENCOUNTER → 2022-03-14 15:12 | Outpatient (BNVA) | payer OTHER, SELFPAY | PROVIDERS: PCP Internal Medicine; Visit Provider Obstetrics & Gynecology | DX: E28.2 Polycystic ovarian syndrome (principal) | CPT/HCPCS: 99212 ==

== ENCOUNTER 2022-11-30 17:05 | Emergency (ER) | payer OTHER, SELFPAY ==
--- NOTE | ~2022-11-30 | US_ITS ---
EXAMINATION:US pelvic ovarian doppler, US pelvic complete CLINICAL INFORMATION: Reason for Exam right pelvic pain COMPARISON: May 2021 LMP: June 2022 FINDINGS: UTERUS: The uterus is anteverted. Size: 7.4 x 2.7 x 4.2 cm. Uterine mass: There is no uterine mass. Cervix: Grossly unremarkable. Endometrium: No ultrasound evidence of endometrial lesion. endometrial thickness measures 0.4 cm ADNEXA: Normal Right ovary: Slightly prominent measure about 5 x 5 x 3 cm, multiple follicles. Left ovary: Slightly prominent 4 x 4 by 2 cm multiple ovarian follicles. Doppler exam: Normal Doppler flow identified in both ovaries. FREE FLUID: Trace amount of free fluid. OTHER FINDINGS: None US/US pelvic ovarian doppler IMPRESSION: * No ultrasound explanation for patient's pain symptoms. * Mildly prominent ovaries with multiple follicles. Please correlate with patient's hormonal stimulation. * No ultrasound evidence of ovarian torsion. * No free fluid in the cul-de-sac.
--- NOTE | ~2022-11-30 | CT_ITS ---
EXAMINATION: CT abdomen pelvis wo IV con CLINICAL INFORMATION: Reason for Exam right flank pain COMPARISON: No prior CT available for comparison. TECHNIQUE: Multidetector volumetric imaging was performed from the superior aspect of the liver through the pubic symphysis , noncontrasted study. Sagittal and coronal reformatted images were obtained on the technologist's workstation. This CT examination was performed using dose optimization techniques as appropriate, variously including the following: *Automated exposure control *Adjustment of mA and/or kV according to patient size (this includes techniques or standardized protocols for targeted exams where dose is matched to indication/reason for exam; i.e. extremities or head) *Use of iterative reconstruction technique DLP: 690 mGy-cm FINDINGS: LOWER THORAX: Included lung bases are clear. HEPATOBILIARY: There is 1 cm calcified granuloma right lobe of the liver. Otherwise homogeneous. GALLBLADDER: Gallbladder unremarkable. SPLEEN: Spleen top normal in size 12 cm. PANCREAS: No focal mass or ductal dilatation. STOMACH AND GASTROINTESTINAL TRACT: Stomach is distended with ingested material. There is no bowel distention or thickening. Appendix is normal in size containing air in its lumen. Excess amount of stool in the colon suggests constipation. ADRENALS: No adrenal nodules. KIDNEYS/URETERS: No hydronephrosis, stones or solid mass lesions. URINARY BLADDER: Partially decompressed. PELVIC VISCERA: Unremarkable PERITONEUM: No free air or fluid. LYMPH NODES: No lymphadenopathy. VASCULAR:Abdominal aorta normal in size, no aneurysm found. BONES, ABDOMINAL WALL AND SOFT TISSUES: Age-appropriate changes of the spine and skeletal system, no destructive osteolytic or osteosclerotic bone lesion found CT/CT abdomen pelvis wo IV con IMPRESSION: * No CT evidence of acute intra-abdominal process to explain patient's pain symptoms. No kidney stone or hydronephrosis. Normal appendix identified. * Excess amount of stool in the colon suggests constipation. * Spleen top normal in size 12 cm. * Calcified granuloma right lobe of the liver.
--- NOTE | ~2022-11-30 | US_ITS ---
EXAMINATION:US pelvic ovarian doppler, US pelvic complete CLINICAL INFORMATION: Reason for Exam right pelvic pain COMPARISON: May 2021 LMP: June 2022 FINDINGS: UTERUS: The uterus is anteverted. Size: 7.4 x 2.7 x 4.2 cm. Uterine mass: There is no uterine mass. Cervix: Grossly unremarkable. Endometrium: No ultrasound evidence of endometrial lesion. endometrial thickness measures 0.4 cm ADNEXA: Normal Right ovary: Slightly prominent measure about 5 x 5 x 3 cm, multiple follicles. Left ovary: Slightly prominent 4 x 4 by 2 cm multiple ovarian follicles. Doppler exam: Normal Doppler flow identified in both ovaries. FREE FLUID: Trace amount of free fluid. OTHER FINDINGS: None US/US pelvic complete IMPRESSION: * No ultrasound explanation for patient's pain symptoms. * Mildly prominent ovaries with multiple follicles. Please correlate with patient's hormonal stimulation. * No ultrasound evidence of ovarian torsion. * No free fluid in the cul-de-sac.
[2022-11-30 17:16] VITALS: BP 123/68; PULSE 75; RESP 18; TEMP 36.6; O2SAT 99; BMI 36.4
--- NOTE | 2022-11-30 17:16 | ED_ITS ---
HPI - Abdominal Pain General Chief Complaint: Abdominal Pain Stated Complaint: lower back and abd pain Time Seen by Provider: 11/30/22 18:44 Related Data Previous Rx's Medication Instructions Recorded conjugated estrogens 1.25 mg 1.25 mg PO DAILY 21 days #21 tabs 01/31/22 tablet (Premarin) medroxyprogesterone 10 mg tablet 10 mg PO DAILY 10 days #10 tabs 01/31/22 (Provera) norgestimate 0.25 mg-ethinyl 1 tab PO DAILY #84 tabs 03/14/22 estradiol 35 mcg tablet (Sprintec (28)) Allergies Allergy/AdvReac Type Severity Reaction Status Date / Time No Known Allergies Allergy Verified 03/14/22 15:21 [No Known Allergies*] [facility] Past Medical History Medical History No known health problems Family History Family History Maternal Grandmother Breast cancer Social History Social History Alcohol intake: never Patient Tobacco Use Status: Never used Tobacco Advance Directives: No Advance Directives Information Provided: No Gender identity: Female Physical Exam ED Vital Signs: Vital Signs - 24 hr 11/30/22 17:16 11/30/22 18:18 11/30/22 20:08 Temperature 97.8 F 98.3 F 98.1 F Pulse Rate 75 99 79 Respiratory Rate 18 16 16 Blood Pressure 123/68 117/72 108/50 L Pulse Oximetry 99 98 98 Oxygen Delivery Method Room Air Room Air Room Air BMI result Body Mass Index 36.4 Course Course Course Narrative: RME 22 yo female with a PMH of PCOS, and secondary amenorrhea presenting to the ED for 4 weeks of constant pain right pelvic area radiating to her back.She does not endorse vaginal discharge or dysuria. She is sexuallya ctive with her , and has never been . Plan: Beta HCG, transvaginal US, CBC, CMP Reevaluation(s) Reevaluation #1: See Dr. Martin's note for full evaluation and treatment Medical Decision Making Lab Data 11/30/22 17:27 11/30/22 17:27 Labs: Lab Results 0511/30/22 11/30/22 Range/Units 17:27 17:27 17:27 WBC 6.1 (4.8-10.8) X10*3/uL RBC 4.91 (4.20-5.50) X10*6/uL Hgb 14.2 (12.0-16.0) g/dl Hct 41.1 (37.0-47.0) % MCV 83.7 (80.0-98.0) fL MCH 28.9 (27.0-33.0) pg MCHC 34.5 (31.0-35.0) g/dl RDW 11.9 (11.0-16.0) % Plt Count 214 (160-400) X10*3/uL MPV 10.2 (9.4-12.3) fL Immature Gran % (Auto) 0.3 (0.0-0.4) % Neut % (Auto) 54.1 (45-73) % Lymph % (Auto) 36.3 (20-40) % [place] % (Auto) 6.2 (2-11) % Eos % (Auto) 2.3 (0-4) % Baso % (Auto) 0.8 (0-2) % Lymph # (Auto) 2.2 (1.2-4.9) X10*3/uL [place] # (Auto) 0.4 (0.1-1.2) X10*3/uL Eos # (Auto) 0.1 (0.0-0.4) X10*3/uL Baso # (Auto) 0.1 (0.0-0.2) X10*3/uL Abs Immat Gran (auto) 0.02 (0.00-0.03) X10*3/uL Absolute Neuts (auto) 3.3 (2.0-8.3) x10*3/uL Absolute Nucleated RBC 0.000 (0.0-0.012) X10*3/uL Nucleated RBC % (auto) 0.0 (0.0-0.2) /100WBC Sodium 140 (135-145) mmol/L Potassium 4.3 (3.3-5.1) mmol/L Chloride 105 (96-108) mmol/L Carbon Dioxide 26 (22-29) mmol/L Anion Gap 13 (12-20) BUN 15 (9-16) mg/dL Creatinine 1.09 (0.5-1.4) mg/dL Estim Creat Clear Calc 92.7 Estimated GFR > 60 Random Glucose 133 H (60-115) mg/dL Calcium 9.1 (8.4-10.2) mg/dL Magnesium 2.2 (1.6-2.6) mg/dL Total Bilirubin 0.3 (0.0-1.0) mg/dL Direct Bilirubin < 0.1 (0.0-0.5) mg/dL AST 22 (5-31) U/L ALT 29 (0-31) U/L Alkaline Phosphatase 83 (39-117) U/L Total Protein 7.1 (6.5-8.0) g/dL Albumin 4.3 (3.5-5.0) g/dL Beta HCG, Quant < 2 mIU/mL Urine Color Urine Appearance Urine pH (5.0-9.0) Ur Specific [place] (1.005-1.025) Urine Protein (Neg-Trace) mg/dL Urine Glucose (UA) (Negative) mg/dL Urine Ketones (Negative) mg/dL Urine Blood (Negative) Urine Nitrite (Negative) Ur Leukocyte Esterase (Negative) 11/30/22 Range/Units 18:31 WBC (4.8-10.8) X10*3/uL RBC (4.20-5.50) X10*6/uL Hgb (12.0-16.0) g/dl Hct (37.0-47.0) % MCV (80.0-98.0) fL MCH (27.0-33.0) pg MCHC (31.0-35.0) g/dl RDW (11.0-16.0) % Plt Count (160-400) X10*3/uL MPV (9.4-12.3) fL Immature Gran % (Auto) (0.0-0.4) % Neut % (Auto) (45-73) % Lymph % (Auto) (20-40) % [place] % (Auto) (2-11) % Eos % (Auto) (0-4) % Baso % (Auto) (0-2) % Lymph # (Auto) (1.2-4.9) X10*3/uL [place] # (Auto) (0.1-1.2) X10*3/uL Eos # (Auto) (0.0-0.4) X10*3/uL Baso # (Auto) (0.0-0.2) X10*3/uL Abs Immat Gran (auto) (0.00-0.03) X10*3/uL Absolute Neuts (auto) (2.0-8.3) x10*3/uL Absolute Nucleated RBC (0.0-0.012) X10*3/uL Nucleated RBC % (auto) (0.0-0.2) /100WBC Sodium (135-145) mmol/L Potassium (3.3-5.1) mmol/L Chloride (96-108) mmol/L Carbon Dioxide (22-29) mmol/L Anion Gap (12-20) BUN (9-16) mg/dL Creatinine (0.5-1.4) mg/dL Estim Creat Clear Calc Estimated GFR Random Glucose (60-115) mg/dL Calcium (8.4-10.2) mg/dL Magnesium (1.6-2.6) mg/dL Total Bilirubin (0.0-1.0) mg/dL Direct Bilirubin (0.0-0.5) mg/dL AST (5-31) U/L ALT (0-31) U/L Alkaline Phosphatase (39-117) U/L Total Protein (6.5-8.0) g/dL Albumin (3.5-5.0) g/dL Beta HCG, Quant mIU/mL Urine Color Yellow Urine Appearance Clear Urine pH 8.0 (5.0-9.0) Ur Specific [place] 1.015 (1.005-1.025) Urine Protein Negative (Neg-Trace) mg/dL Urine Glucose (UA) Negative (Negative) mg/dL Urine Ketones Negative (Negative) mg/dL Urine Blood Negative (Negative) Urine Nitrite Negative (Negative) Ur Leukocyte Esterase Negative (Negative) Medications Administered Discontinued Medications Generic Name Dose Route Start Last Admin Trade Name Freq PRN Reason Stop Dose Admin Ketorolac Tromethamine 30 mg 11/30/22 18:56 11/30/22 19:12 Ketorolac Tromethamine 30 Mg/Ml Vial IM 11/30/22 18:57 30 mg ONCE ONE Administration Discharge Plan Discharge Clinical Impression: Abdominal pain Prescriptions: No Action Premarin 1.25 mg tablet 1.25 mg PO DAILY 21 Days Qty: 21 0RF medroxyprogesterone [Provera] 10 mg tablet 10 mg PO DAILY 10 Days Qty: 10 0RF Rx Instructions: start Provera 1 tablet daily last 10 days of Premarin tablets norgestimate-ethinyl estradiol [Sprintec (28)] 0.25-35 mg-mcg tablet 1 tab PO DAILY Qty: 84 0RF
[2022-11-30 17:33] LABS: MANUAL DIFF FLAG NO
[2022-11-30 17:36] LABS: Basophils Absolute Auto 0.1 X10*3/uL (0.0-0.2); Basophils Percent Auto 0.8 % (0-2); Eosinophils Absolute Auto 0.1 X10*3/uL (0.0-0.4); Eosinophils Percent Auto 2.3 % (0-4); Hematocrit 41.1 % (37.0-47.0); Hemoglobin 14.2 g/dl (12.0-16.0); Imm Gran Abs Auto 0.02 X10*3/uL (0.00-0.03); Imm Gran Pct Auto 0.3 % (0.0-0.4); Lymphocytes Absolute Auto 2.2 X10*3/uL (1.2-4.9); Lymphocytes Percent Auto 36.3 % (20-40); Mean Corpuscular HGB Conc 34.5 g/dl (31.0-35.0); Mean Corpuscular Hemoglobin 28.9 pg (27.0-33.0); Mean Corpuscular Volume 83.7 fL (80.0-98.0); Mean Platelet Volume 10.2 fL (9.4-12.3); Monocytes Absolute Auto 0.4 X10*3/uL (0.1-1.2); Monocytes Percent Auto 6.2 % (2-11); Neutrophils Absolute Auto 3.3 x10*3/uL (2.0-8.3); Neutrophils Percent Auto 54.1 % (45-73); Platelet Count 214 X10*3/uL (160-400); Red Blood Count 4.91 X10*6/uL (4.20-5.50); Red Cell Distribution Width 11.9 % (11.0-16.0); White Blood Count 6.1 X10*3/uL (4.8-10.8)
[2022-11-30 18:01] LABS: Alanine Aminotransferase 29 U/L (0-31); Albumin Level 4.3 g/dL (3.5-5.0); Alkaline Phosphatase 83 U/L (39-117); Anion Gap 13 (12-20); Aspartate Amino Transferase 22 U/L (5-31); Bilirubin Direct < 0.1 mg/dL (0.0-0.5); Bilirubin Total 0.3 mg/dL (0.0-1.0); Blood Urea Nitrogen 15 mg/dL (9-16); Calcium 9.1 mg/dL (8.4-10.2); Carbon Dioxide 26 mmol/L (22-29); Chloride 105 mmol/L (96-108); Creatinine Clr Calc Pharmacy 92.7; Estimated Glomerular Filt Rate > 60; Glucose Random 133 mg/dL (60-115); Magnesium 2.2 mg/dL (1.6-2.6); Potassium 4.3 mmol/L (3.3-5.1); Sodium 140 mmol/L (135-145); Total Protein 7.1 g/dL (6.5-8.0)
[2022-11-30 18:12] LABS: HCG Quantitative < 2 mIU/mL
[2022-11-30 18:18] VITALS: BP 117/72; PULSE 99; RESP 16; TEMP 36.8; O2SAT 98
[2022-11-30 18:38] LABS: Appearance Urine Clear; Color Urine Yellow; Glucose Urine UA Negative (Negative); Leukocyte Esterase Urine Negative (Negative); Nitrite Urine Negative (Negative); Specific Gravity - Urine 1.015 (1.005-1.025); Urine Blood Negative (Negative); Urine Ketones Negative (Negative); Urine Protein Negative (Neg-Trace)
--- NOTE | 2022-11-30 18:57 | ED_ITS ---
HPI - Abdominal Pain General Chief Complaint: Abdominal Pain Stated Complaint: lower back and abd pain Time Seen by Provider: 11/30/22 18:44 Source: patient and old records reviewed History of Present Illness HPI narrative: Patient with abdominal pain for the past 4 weeks but getting worse. His right lower abdomen radiating to right flank. Patient describes it as starting in her ovaries and radiating back. She has a history of polycystic ovary disease. No history of kidney stones. She denies other associated symptoms such as nausea vomiting diarrhea constipation. No dysuria hematuria hesitancy or frequency No vaginal bleeding or vaginal discharge. She does not have a history of this kind of pain before. She states at times it is severe Related Data Previous Rx's Medication Instructions Recorded conjugated estrogens 1.25 mg 1.25 mg PO DAILY 21 days #21 tabs 01/31/22 tablet (Premarin) medroxyprogesterone 10 mg tablet 10 mg PO DAILY 10 days #10 tabs 01/31/22 (Provera) norgestimate 0.25 mg-ethinyl 1 tab PO DAILY #84 tabs 03/14/22 estradiol 35 mcg tablet (Sprintec (28)) ibuprofen 800 mg tablet 800 mg PO Q8H PRN pain #30 tabs 11/30/22 Allergies Allergy/AdvReac Type Severity Reaction Status Date / Time No Known Allergies Allergy Verified 03/14/22 15:21 [No Known Allergies*] Review of Systems Comments: No fevers chills or recent illnesses Comments: No cough or dyspnea Gastrointestinal: Reports as per HPI Genitourinary: Reports no additional female genitourinary complaints Comments: No radiation of pain to extremities Comments: No skin changes Comments: No focal weakness PMFSH Past Medical History Medical History No known health problems Family History Family History Maternal Grandmother Breast cancer Social History Social History Alcohol intake: never Patient Tobacco Use Status: Never used Tobacco Advance Directives: No Advance Directives Information Provided: No Gender identity: Female Physical Exam ED Vital Signs: Vital Signs - 24 hr 11/30/22 17:16 11/30/22 18:18 05/17/23 20:08 Temperature 97.8 F 98.3 F 98.1 F Pulse Rate 75 99 79 Respiratory Rate 18 16 16 Blood Pressure 123/68 117/72 108/50 L Pulse Oximetry 99 98 98 Oxygen Delivery Method Room Air Room Air Room Air BMI result Body Mass Index 36.4 Const Other: Awake alert. No acute distress. Resp Other: No respiratory distress GI Other: Soft and nondistended. Tenderness right lower quadrant and right mid abdomen. Right flank tenderness to percussion. Other: Deferred secondary to lack of symptoms Skin Other: Warm pink and dry Neuro Other: No obvious focal neuro deficits Medical Decision Making Medical Decision Making MDM Narrative: Patient with right lower quadrant abdominal pain radiating to right flank. History of polycystic ovary disease. Rule out torsion versus ovarian rupture. Other considerations on the differential would be kidney stone, urinary tract infection, appendicitis possible but less likely. 19:02. CBC is normal with a normal white count Chemistries are unremarkable. Glucose is 133. LFTs and lipase are normal. . Pelvis ultrasound shows no evidence of significant ovarian rupture, free fluid, or torsion. No explanation for patient's pain. Will add on CT scan as kidney stone and appendicitis are still in the differential. Will do CT scan without IV contrast as kidney stones more likely and after 4 weeks of symptoms, if in the unlikely event is appendicitis it should still be evident on a noncontrast scan. 20:35. CT scan shows no obvious cause of patient's pain. There is some constipation but no other significant abnormality. Results all explained to patient. She is stable for discharge home. Nonspecific abdominal pain which could have been from a small ruptured cyst or musculoskeletal in nature. Treatment will be ibuprofen and follow-up with gynecology Lab Data 11/30/22 17:27 11/30/22 17:27 Labs: Lab Results 11/30/22 11/30/22 11/30/22 Range/Units 17:27 17:27 17:27 WBC 6.1 (4.8-10.8) X10*3/uL RBC 4.91 (4.20-5.50) X10*6/uL Hgb 14.2 (12.0-16.0) g/dl Hct 41.1 (37.0-47.0) % MCV 83.7 (80.0-98.0) fL MCH 28.9 (27.0-33.0) pg MCHC 34.5 (31.0-35.0) g/dl RDW 11.9 (11.0-16.0) % Plt Count 214 (160-400) X10*3/uL MPV 10.2 (9.4-12.3) fL Immature Gran % (Auto) 0.3 (0.0-0.4) % Neut % (Auto) 54.1 (45-73) % Lymph % (Auto) 36.3 (20-40) % [place] % (Auto) 6.2 (2-11) % Eos % (Auto) 2.3 (0-4) % Baso % (Auto) 0.8 (0-2) % Lymph # (Auto) 2.2 (1.2-4.9) X10*3/uL [place] # (Auto) 0.4 (0.1-1.2) X10*3/uL Eos # (Auto) 0.1 (0.0-0.4) X10*3/uL Baso # (Auto) 0.1 (0.0-0.2) X10*3/uL Abs Immat Gran (auto) 0.02 (0.00-0.03) X10*3/uL Absolute Neuts (auto) 3.3 (2.0-8.3) x10*3/uL Absolute Nucleated RBC 0.000 (0.0-0.012) X10*3/uL Nucleated RBC % (auto) 0.0 (0.0-0.2) /100WBC Sodium 140 (135-145) mmol/L Potassium 4.3 (3.3-5.1) mmol/L Chloride 105 (96-108) mmol/L Carbon Dioxide 26 (22-29) mmol/L Anion Gap 13 (12-20) BUN 15 (9-16) mg/dL Creatinine 1.09 (0.5-1.4) mg/dL Estim Creat Clear Calc 92.7 Estimated GFR > 60 Random Glucose 133 H (60-115) mg/dL Calcium 9.1 (8.4-10.2) mg/dL Magnesium 2.2 (1.6-2.6) mg/dL Total Bilirubin 0.3 (0.0-1.0) mg/dL Direct Bilirubin < 0.1 (0.0-0.5) mg/dL AST 22 (5-31) U/L ALT 29 (0-31) U/L Alkaline Phosphatase 83 (39-117) U/L Total Protein 7.1 (6.5-8.0) g/dL Albumin 4.3 (3.5-5.0) g/dL Beta HCG, Quant < 2 mIU/mL Urine Color Urine Appearance Urine pH (5.0-9.0) Ur Specific [place] (1.005-1.025) Urine Protein (Neg-Trace) mg/dL Urine Glucose (UA) (Negative) mg/dL Urine Ketones (Negative) mg/dL Urine Blood (Negative) Urine Nitrite (Negative) Ur Leukocyte Esterase (Negative) 11/30/22 Range/Units 18:31 WBC (4.8-10.8) X10*3/uL RBC (4.20-5.50) X10*6/uL Hgb (12.0-16.0) g/dl Hct (37.0-47.0) % MCV (80.0-98.0) fL MCH (27.0-33.0) pg MCHC (31.0-35.0) g/dl RDW (11.0-16.0) % Plt Count (160-400) X10*3/uL MPV (9.4-12.3) fL Immature Gran % (Auto) (0.0-0.4) % Neut % (Auto) (45-73) % Lymph % (Auto) (20-40) % [place] % (Auto) (2-11) % Eos % (Auto) (0-4) % Baso % (Auto) (0-2) % Lymph # (Auto) (1.2-4.9) X10*3/uL [place] # (Auto) (0.1-1.2) X10*3/uL Eos # (Auto) (0.0-0.4) X10*3/uL Baso # (Auto) (0.0-0.2) X10*3/uL Abs Immat Gran (auto) (0.00-0.03) X10*3/uL Absolute Neuts (auto) (2.0-8.3) x10*3/uL Absolute Nucleated RBC (0.0-0.012) X10*3/uL Nucleated RBC % (auto) (0.0-0.2) /100WBC Sodium (135-145) mmol/L Potassium (3.3-5.1) mmol/L Chloride (96-108) mmol/L Carbon Dioxide (22-29) mmol/L Anion Gap (12-20) BUN (9-16) mg/dL Creatinine (0.5-1.4) mg/dL Estim Creat Clear Calc Estimated GFR Random Glucose (60-115) mg/dL Calcium (8.4-10.2) mg/dL Magnesium (1.6-2.6) mg/dL Total Bilirubin (0.0-1.0) mg/dL Direct Bilirubin (0.0-0.5) mg/dL AST (5-31) U/L ALT (0-31) U/L Alkaline Phosphatase (39-117) U/L Total Protein (6.5-8.0) g/dL Albumin (3.5-5.0) g/dL Beta HCG, Quant mIU/mL Urine Color Yellow Urine Appearance Clear Urine pH 8.0 (5.0-9.0) Ur Specific [place] 1.015 (1.005-1.025) Urine Protein Negative (Neg-Trace) mg/dL Urine Glucose (UA) Negative (Negative) mg/dL Urine Ketones Negative (Negative) mg/dL Urine Blood Negative (Negative) Urine Nitrite Negative (Negative) Ur Leukocyte Esterase Negative (Negative) Medications Administered Discontinued Medications Generic Name Dose Route Start Last Admin Trade Name Freq PRN Reason Stop Dose Admin Ketorolac Tromethamine 30 mg 11/30/22 18:56 11/30/22 19:12 Ketorolac Tromethamine 30 Mg/Ml Vial IM 11/30/22 18:57 30 mg ONCE ONE Administration Discharge Plan Discharge Clinical Impression: Abdominal pain Patient Disposition: Home, Self-Care Instructions: Abdominal Pain (ED), Ruptured Ovarian Cyst (ED) Additional Instructions: 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
[2022-11-30] MEDS: Ketorolac Tromethamine 30 MG/ML VIAL IM (19:12)
[2022-11-30 20:08] VITALS: BP 108/50; PULSE 79; RESP 16; TEMP 36.7; O2SAT 98
[2022-11-30 21:01] VITALS: BP 108/48; PULSE 79; RESP 12; TEMP 36.6; O2SAT 99
--- NOTE | 2022-11-30 21:05 | PC.NURSE ---
pt partner at bedside. pt reports decreased pain. vss. pt ambulatory at discharge. pt provided with discharge packet. pt verbalized understanding of discharge plan
== END 2022-11-30 21:06 | disposition home or self-care (01) ==
PROVIDERS: Physician Assistant; Emergency Provider Emergency Medicine
DX: M54.50 Low back pain, unspecified (principal); R10.2 Pelvic and perineal pain; Z79.899 Other long term (current) drug therapy
CPT/HCPCS: 36415; 74176; 76856; 80048; 80076; 81003; 83735; 84702; 85025; 93975; 96372; 99284; J1885

== ENCOUNTER 2025-02-09 23:14 | Emergency (ER) | payer OTHER, SELFPAY ==
[2025-02-09 23:16] VITALS: BP 125/71; PULSE 82; RESP 16; TEMP 36.4; O2SAT 99; BMI 37.2
--- NOTE | 2025-02-10 03:33 | ED.GENADULT ---
HPI - General Adult General Chief complaint: Extremity Problem Stated complaint: left arm pain Time Seen by Provider: 02/10/25 02:33 Source: patient Limitations: no limitations History of Present Illness ED Provider: Italia Hyde PA-C HPI narrative: 24-year-old female presents with left arm pain x3 days. Associated subjective swelling, and sense that the extremity is warm. Denies redness or trauma. Denies weakness or paresthesia. No fevers or chills. She does perform repetitive activity at work. Pain most prominent over the elbow. Related Data Previous Rx's ?Medication ?Instructions ?Recorded conjugated estrogens 1.25 mg 1.25 mg PO DAILY 21 days #21 tabs 01/31/22 tablet (Premarin) medroxyprogesterone 10 mg tablet 10 mg PO DAILY 10 days #10 tabs 01/31/22 (Provera) norgestimate 0.25 mg-ethinyl 1 tab PO DAILY #84 tabs 03/14/22 estradiol 0.035 mg tablet (Sprintec (28)) ibuprofen 800 mg tablet 800 mg PO Q8H PRN pain #30 tabs 11/30/22 meloxicam 15 mg tablet 15 mg PO DAILY #7 tabs 02/10/25 methocarbamol 750 mg tablet 750 mg PO BEDTIME PRN pain, 02/10/25 moderate #7 tabs methylprednisolone 4 mg tablets in 4 mg PO QAM #21 ea 02/10/25 a dose pack (Medrol (Jose Enrique)) Allergies Allergy/AdvReac Type Severity Reaction Status Date / Time No Known Allergies (No Known Allergy Verified 02/09/25 23:19 Allergies*) Review of Systems Review of Systems: Yes all other systems are reviewed and are negative Constitutional: Constitutional: Denies fatigue and Denies fever(s) Cardiovascular: Cardiovascular: Denies chest pain and Denies dyspnea Respiratory: Respiratory: Denies dyspnea Musculoskeletal: Musculoskeletal: Reports arthralgias, Denies joint swelling, Denies muscle weakness, Denies numbness and Denies tingling Neurologic: Denies numbness and Denies tingling Endocrine: Endocrine: Denies fatigue [facility] Past Medical History Attestation statement: The following information was validated with the patient. Medical History No known health problems Family History Family History Maternal Grandmother Breast cancer Social History Social History Alcohol intake: never Patient Tobacco Use Status: Never used Tobacco Smoked in Last 30 Days: No Use of substances other than those prescribed or required for medical reasons: No Advance Directives: No Advance Directives Information Provided: No Patient : No Gender identity: Female Physical Exam ED Vital Signs: Vital Signs - 24 hr 02/09/25 23:16 Temperature 97.6 F Pulse Rate 82 Respiratory Rate 16 Blood Pressure 125/71 Pulse Oximetry 99 Oxygen Delivery Method Room Air BMI result Body Mass Index 37.2 Const Other: Alert well-appearing Orientation/consciousness: patient oriented x3 Resp Effort & Inspection: normal respiratory effort Cardio Other: Normal peripheral perfusion Skin Other: Warm dry no rash Neuro General: patient oriented x3, gait normal, no focal motor deficits and CN's II-XI intact bilaterally Extrem Other: Pain elicited over lateral elbow with resisted pronation, she also has full range of motion in flexion and extension of the elbow Psych Other: Cooperative Medications Administered Discontinued Medications Generic Name Dose Route Start Last Admin Trade Name Freq PRN Reason Stop Dose Admin Ketorolac Tromethamine 15 mg 02/10/25 03:06 02/10/25 04:07 Ketorolac Tromethamine 15 Mg/Ml Vial IM 02/10/25 03:07 15 mg ONCE ONE Administration Methocarbamol 1,500 mg 02/10/25 03:06 02/10/25 04:06 Methocarbamol 750 Mg Tablet PO 02/10/25 03:07 1,500 mg ONCE ONE Administration Prednisone 10 mg 02/10/25 03:06 02/10/25 04:06 Prednisone 10 Mg Tablet PO 02/10/25 03:07 10 mg ONCE ONE Administration Medical Decision Making Medical Decision Making MDM Narrative: 24-year-old female presents with left arm pain x3 days. Associated subjective swelling, and sense that the extremity is warm. Denies redness or trauma. Denies weakness or paresthesia. No fevers or chills. She does perform repetitive activity at work. Pain most prominent over the elbow. No chronic issues History: Per patient I have considered the following differential diagnoses: DVT, cellulitis, septic joint, tendonitis, sprain, fracture, dislocation Plan: Based on my exam, the patient has tennis elbow. She does perform repetitive activity, which is the likely trigger. We will send with home care instructions. No indication for x-rays, there was no trauma, and she has full range of motion without deformity. Thought about septic joint, however again she has retained range of motion there was no overlying redness or warmth, there was also no objective swelling. Hence DVT is least likely. Discharge Plan Discharge Clinical Impression: Left tennis elbow Patient Disposition: Home, Self-Care Instructions: Tennis Elbow (ED) Additional Instructions: You are being treated for tendinitis of the elbow. See home care instructions. You need to purchase a compression band, to place above the elbow joint, to offer relief from the inflammation. In addition, take the meloxicam and the steroid taper as directed. Take these medications with food. [place] the methocarbamol at night for sleep. This is a muscle relaxant, it will cause drowsiness, do not drive or operate machinery while taking the medication. Follow up with your primary care provider as needed. Prescriptions: New methylprednisolone [Medrol (Jose Enrique)] 4 mg tablets,dose pack 4 mg PO QAM Qty: 21 0RF Rx Instructions: Take per package instructions methocarbamol 750 mg tablet 750 mg PO BEDTIME PRN (Reason: pain, moderate) Qty: 7 0RF meloxicam 15 mg tablet 15 mg PO DAILY Qty: 7 0RF No Action ibuprofen 800 mg tablet 800 mg PO Q8H PRN (Reason: pain) Qty: 30 0RF Premarin 1.25 mg tablet 1.25 mg PO DAILY 21 Days Qty: 21 0RF medroxyprogesterone [Provera] 10 mg tablet 10 mg PO DAILY 10 Days Qty: 10 0RF Rx Instructions: start Provera 1 tablet daily last 10 days of Premarin tablets norgestimate-ethinyl estradiol [Sprintec (28)] 0.25-35 mg-mcg tablet 1 tab PO DAILY Qty: 84 0RF Stand Alone Forms: Work/School Release Interventions: ED Discharge Assessment Last Done: 02/10/25 04:15 Discharge Date/Time: 02/10/25 04:15 Print Language: Nepali
[2025-02-10 04:01] VITALS: BP 108/61; PULSE 78; RESP 16; TEMP 36.5; O2SAT 98
[2025-02-10 04:15] VITALS: BP 108/61; PULSE 78; RESP 16; TEMP 36.5; O2SAT 98
== END 2025-02-10 04:15 | disposition home or self-care (01) ==
PROVIDERS: Emergency Provider Emergency Medicine; PCP Internal Medicine
DX: M77.12 Lateral epicondylitis, left elbow (principal); M79.602 Pain in left arm
CPT/HCPCS: 96372; 99284; J1885

== ENCOUNTER 2025-03-16 12:23 | Emergency (ER) | payer OTHER, SELFPAY ==
[2025-03-16 12:36] VITALS: BP 118/58; PULSE 74; RESP 16; TEMP 36.7; O2SAT 97; BMI 36.2
--- NOTE | 2025-03-16 12:38 | ED.EYEPROB ---
HPI - Eye Problem General Chief complaint: Eye Problems Stated complaint: R eye pain Time Seen by Provider: 03/16/25 12:37 Source: patient and historic interpreter (Kosovan) Mode of arrival: ambulatory Limitations: language barrier (Kosovan) History of Present Illness ED Provider: TONYA ARNETT PA-C HPI Narrative: 24 year old Kosovan speaking female presents to the ED today for evaluation of tearing and redness to right eye since yesterday. She reports sleeping in her contacts over night Monday and woke up the following morning (yesterday) with irritation, tearing, and burning sensation to right eye. Her boyfriend noted crusting to her right eye. Denies any vision changes, fever, chills, active drainage. Does not recall getting anything in her eye. Does not recall scratching her eye. She does wear corrective lenses. Denies trauma/ injury to the eye. Related Data Previous Rx's ?Medication ?Instructions ?Recorded conjugated estrogens 1.25 mg 1.25 mg PO DAILY 21 days #21 tabs 01/31/22 tablet (Premarin) medroxyprogesterone 10 mg tablet 10 mg PO DAILY 10 days #10 tabs 01/31/22 (Provera) norgestimate 0.25 mg-ethinyl 1 tab PO DAILY #84 tabs 03/14/22 estradiol 0.035 mg tablet (Sprintec (28)) ibuprofen 800 mg tablet 800 mg PO Q8H PRN pain #30 tabs 11/30/22 meloxicam 15 mg tablet 15 mg PO DAILY #7 tabs 02/10/25 methocarbamol 750 mg tablet 750 mg PO BEDTIME PRN pain, 02/10/25 moderate #7 tabs methylprednisolone 4 mg tablets in 4 mg PO QAM #21 ea 02/10/25 a dose pack (Medrol (Jose Enrique)) ciprofloxacin HCl 0.3 % eye 0.5 inch ophthalmic-Right QID 5 03/16/25 ointment days #3.5 grams Allergies Allergy/AdvReac Type Severity Reaction Status Date / Time No Known Allergies (No Known Allergy Verified 03/16/25 12:38 Allergies*) Review of Systems Review of Systems: Constitutional: No fever, chills, fatigue, night sweats, weight changes ENT/Mouth: No ear pain, hearing loss, nasal congestion, sinus pain, rhinorrhea, sore throat Eyes: No swelling, redness, vision changes, discharge, +eye pain Cardio: No chest pain, palpitations, SILVA, orthopnea, peripheral edema Pulm: No SOB, cough, sputum, wheezing, dyspnea, hemoptysis GI: No nausea, vomiting, hematemesis, abdominal pain, diarrhea, constipation, hematochezia, melena : No irregular bleeding, dysuria, frequency, urgency, hesitancy, hematuria, flank pain, urinary flow changes, urinary incontinence or retention MSK: No back pain, neck pain, joint pain, myalgias Skin: No lesions, rashes Neuro: No weakness, numbness, paresthesias, LOC, dizziness, headache Psych: No anxiety/panic, depression, SI/HI, AH/VH All other systems reviewed and are negative. [facility] Past Medical History Attestation statement: The following information was validated with the patient. Source: old records reviewed and nursing notes reviewed Medical History No known health problems Family History Family History Maternal Grandmother Breast cancer Social History Social History Alcohol intake: never Patient Tobacco Use Status: Never used Tobacco Advance Directives: No Advance Directives Information Provided: Yes Gender identity: Female Physical Exam Vital Signs: Vital Signs: Last Vital Signs Temp 98.1 F 03/16/25 13:53 Pulse 74 03/16/25 13:53 Resp 16 03/16/25 13:53 BP 118/58 L 03/16/25 13:53 Pulse Ox 97 03/16/25 13:53 O2 Del Method Room Air 03/16/25 13:53 BMI result Body Mass Index 36.2 vital signs stable General: Well appearing, in no acute distress. Skin: Warm, dry, intact. No rashes or lesions. Head: Normocephalic, atraumatic. EENT: No periorbital swelling. No enophthalmous or exopthalmous. EOMs intact without pain or entrapment. PERRLA. Positive photophobia. No obvious foreign body. noted conjunctival injection. No chemosis. No hazy cornea. IOP OD 17, IOP OS 23. On tetracaine exam, noted punctate abrasion to 6/7 oclock without ulceration. No dendritic lesions. Neck: Supple without LAD Cardiac: Chest wall symmetric. RRR Lungs: Normal respiratory effort without accessory muscle use. CTA bilaterally Back: No midline spinous or paraspinal tenderness. No step off deformity. Neuro: AOx3. Normal speech. Ambulating with steady gait. Course Course Course Narrative: Physical exam consistent with corneal abrasion. Ciprofloxacin ointment sent to pharmacy for treatment. Patient has remained stable throughout ED visit today. Discussed worrisome signs and symptoms and when to return to the ED. All questions answered at this time. Patient is agreeable with disposition and stable for discharge. Medications Administered Discontinued Medications Generic Name Dose Route Start Last Admin Trade Name Freq PRN Reason Stop Dose Admin Fluorescein Sodium 1 strip 03/16/25 12:37 03/16/25 13:33 Fluorescein Sodium Strip EYE-RIGHT 03/16/25 12:38 1 strip ONCE ONE Administration Tetracaine HCl 1 drop 03/16/25 12:37 03/16/25 13:33 Tetracaine Hcl/Pf 0.5% Oph [place] 4 Ml Drops EYE-RIGHT 03/16/25 12:38 1 drop ONCE ONE Administration Medical Decision Making Medical Decision Making MDM Narrative: 24 year old Kosovan speaking female presents to the ED today for evaluation of tearing and redness to right eye since yesterday. Vital signs stable. She is well-appearing in no acute distress. On exam, No periorbital swelling. No enophthalmous or exopthalmous. EOMs intact without pain or entrapment. PERRLA. Positive photophobia. No obvious foreign body. noted conjunctival injection. No chemosis. No hazy cornea. IOP OD 17, IOP OS 23. On tetracaine exam, noted punctate abrasion to 6/7 oclock without ulceration. No dendritic lesions. Differential diagnosis includes corneal abrasion, corneal ulceration, corneal FB, conjunctivitis. Lower suspicion for iritis, keratitis. Unlikely pre-septal cellulitis, orbital cellulitis, acute angle closure glaucoma. Plan for tetracaine/fluorescein examination, IOP, VA, and disposition. Differential Diagnosis Differential Diagnoses: The differential diagnosis associated with the presentation includes as above. Admission/Observation Not indicated. External Record Review External record reviewed: Inpatient record Prescription Management I considered prescription management with: Antibiotic (ciprofloxacin ointment) Social Determinants Patient?s care significantly limited by Social Determinants of Health including: Other Social Determinant of Health Critical Care Time Critical Care Time Critical Care Time: No Discharge Plan Discharge Clinical Impression: Corneal abrasion Patient Disposition: Home, Self-Care Instructions: Corneal Abrasion (ED) Additional Instructions: You were evaluated in the ED today for right eye tearing/discomfort. Your exam reveals an abrasion to your right cornea. Treatment for this is with an antibiotic ointment (ciprofloxacin). Apply 1/2 inch ribbon into the right eye four times daily for 5 days. DO NOT WEAR YOUR CONTACTS until you have completed treatment and symptoms have resolved. Change to a new set of contacts once you have completed treatment. Return with any new or worsening symptoms. In the case of an emergency call 911. Prescriptions: New ciprofloxacin HCl 0.3 % ointment 0.5 inch ophthalmic-Right QID 5 Days Qty: 3.5 0RF Rx Instructions: Apply a 1/2-inch ribbon into affected eye(s) 4 times daily for 3 to 5 days No Action ibuprofen 800 mg tablet 800 mg PO Q8H PRN (Reason: pain) Qty: 30 0RF methylprednisolone [Medrol (Jose Enrique)] 4 mg tablets,dose pack 4 mg PO QAM Qty: 21 0RF Rx Instructions: Take per package instructions methocarbamol 750 mg tablet 750 mg PO BEDTIME PRN (Reason: pain, moderate) Qty: 7 0RF meloxicam 15 mg tablet 15 mg PO DAILY Qty: 7 0RF Premarin 1.25 mg tablet 1.25 mg PO DAILY 21 Days Qty: 21 0RF medroxyprogesterone [Provera] 10 mg tablet 10 mg PO DAILY 10 Days Qty: 10 0RF Rx Instructions: start Provera 1 tablet daily last 10 days of Premarin tablets norgestimate-ethinyl estradiol [Sprintec (28)] 0.25-35 mg-mcg tablet 1 tab PO DAILY Qty: 84 0RF Referrals: Ariel Rodríguez MD [Primary Care Provider, Internal Medicine] Interventions: ED Discharge Assessment Last Done: 03/16/25 13:53 Discharge Date/Time: 03/16/25 13:53 Print Language: Kosovan
--- OUTSIDE RECORDS SUMMARY | 2025-03-16 12:51 | XMS_ITS | Clinical Summary ---
Author Organization [address] Address [address] [place] [phone] Phone Care Team Providers Care Dining Room Attendant Cafeteria Name Role Phone Ariel Rodríguez MD Primary Care Provider Allergies No known active allergies Medications medroxyPROGESTE Aiden (Provera) 10 mg tablet Take 1 tablet (10 mg total) by mouth 1 (one) time each day for 10 days. 10 each 07/05/2024 Active methylPREDNISol one (MEDROL DOSPAK) 4 mg tablet Take 1 tablet (4 mg total) by mouth 1 (one) time each day. Take 6 tablets on day 1 as directed and decrease by 1 tablets each day for a total of 6 days. 02/10/2025 Active methocarbamoL (ROBAXIN) 750 mg tablet Take 1 tablet (750 mg total) by mouth at bedtime as needed for muscle spasms. 02/10/2025 Active meloxicam (MOBIC) 15 mg tablet Take 1 tablet (15 mg total) by mouth 1 (one) time each day. 02/10/2025 Active Active Problems Problem Noted Date Diagnosed Date Polycystic bilateral ovaries 06/10/2024 Infertility, female 12/24/2022 Overview (05/23/2024): Last Assessment & Plan: I discussed with the patient that there are various reasons why there can be a delay in conception, including chance, male, and female factors. In this case the likely factor is infertility with oligoovulation. Other factors may include egg quality issues, transport issues through the fallopian tubes, and uterine/endometrial issues. We discussed recommended work-up prior to intiating treatment. Patient accepts referral to [facility], which was placed today. All questions answered. PCOS (polycystic ovarian syndrome) 12/24/2022 Overview (05/23/2024): Last Assessment & Plan: Patient was counseled regarding the implications of PCOS including irregular ovulation which can lead to endometrial hyperplasia or malignancy, and also subfertility or infertility. 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 I recommended weight loss to help with resumption of regular menses, but in the meantime, reviewed hormonal options for menstrual regulation/endometrial protection. She desires and is not interested in hormonal contraceptive options for endometrial protection at this time. Obesity (BMI 30.0-34.9) 08/30/2022 Encounters Date Type Department Care Team Description 02/11/2025 2:30 PM EDT Office Visit Adult Medicine [address] [phone] Dee Hansen PA Left elbow pain (Primary Dx) 02/11/2025 Telephone Adult Medicine [address] [phone] Marbella Gandhi MA from Last 3 Months Immunizations Name Administration Dates Next Due Influenza Quadravalent, MDCK , 0.5ml, preservative free (Flucelvax) 6mo and older 08/30/2022 Influenza trivalent, MDCK, 0 .5mL, preservative free (Flucelvax) 6mo and older 06/10/2024 Pneumococcal conjugate 20 va lent (Prevnar 20, PCV 20) 2mo and older 06/10/2024 Tdap Tetanus diptheria acell ular pertussis (Boostrix; Adacel) 7yo and older 08/30/2022 Surgical History Surgery Date Site/Laterality Comments OTHER SURGICAL HISTORY PROCEDURE: DENIES PREVIOUS SURGERY Family History Medical History Relation Name Comments Diabetes Aunt Hypertension Aunt Breast cancer Maternal Grandmother Stroke Maternal Grandmother Diabetes Mother Hypertension Mother Relation Name Status Comments Aunt Alive Maternal Grandmother Mother Social History Tobacco Use Types Packs/Day Years Used Date Smoking Tobacco: Never Smokeless Tobacco: Never Alcohol Use Standard Drinks/Week Comments Never 0 (1 standard drink = 0.6 oz pur e alcohol) Housing Instability Answer Date Recorde d Are you worried that in the next 2 months you may not have stable housing? No 06/08/2024 Food Access & Nutrition Answer Date Rec orded Do you have access to a vari ety of food including fruits and vegetables? Yes 06/08/2024 Access to Healthcare Answer Date Record ed Within the last 3 months, ho w many times did you visit the emergency department for your medical care? 5 06/08/2024 Health Literacy Answer Date Recorded How often do you need to hav e someone help you when you read instructions, pamphlets, or other written material from your doctor or pharmacy? Never 06/08/2024 Caregiver: How often do you need to have someone help you when you read instructions, pamphlets, or other written material from your doctor or pharmacy? Not on file 06/08/2024 Financial Risk Answer Date Recorded How hard is it for you to pa y for the very basics like food, housing, medical care, and air conditioning / heating? Very hard 06/08/2024 Transportation Answer Date Recorded Has the lack of transportati on kept you from meetings, work, or from getting things needed for daily living? Yes Has the lack of transportati on kept you from medical appointments or from getting medications? Yes 06/08/2024 Social Isolation Answer Date Recorded How often do you feel lonely or isolated from th ose around you? Never 06/08/2024 Food Risk Answer Date Recorded Within the past 12 months we worried whether our food would run out before we got money to buy more. Sometimes true 024 Within the past 12 months th e food we bought just didn't last and we didn't have money to get more. Sometimes true 06/08/2024 Dependent Care Answer Date Recorded Do you need help finding or paying for care for your loved ones. For example, child protective services social worker or elderly care for an older adult? No 06/08/2024 Education Answer Date Recorded Do you think completing more education or training, like finishing a GED, going to college, or learning a trade, would be helpful for you? Yes 06/08/2024 Employment and Income Answer Date Recor ded During the last four weeks, have you been actively looking for work? Yes 06/08/2024 Living Situation Answer Date Recorded What is your living situation? 1 08/08/2023 Comments No Sex and Gender Information Value Date Recorded Sex Assigned at Not on file Legal Sex Female 9:01 PM EST Gender Identity Not on file Sexual Orientation Not on file Obstetrics History Para Term AB IAB SAB Ectopic Multiple Livin g Live Births 0 0 0 0 0 0 0 0 Last Filed Vital Signs Vital Sign Reading Time Taken Comments Blood Pressure 109/63 02/11/2025 2:32 PM EDT Pulse 84 02/11/2025 2:32 PM EDT Temperature 36.6 C (97.8 F) 02/11/2025 2:32 PM EDT Respiratory Rate 16 02/11/2025 2:32 PM EDT Oxygen Saturation 99% 02/11/2025 2:32 PM EDT Inhaled Oxygen Concentration - - Weight 99.8 kg (220 lb) 02/11/2025 2:32 PM EDT Height 165.1 cm (5' 5 ) 02/11/2025 2:32 PM EDT Body Mass Index 36.61 02/11/2025 2:32 PM EDT Plan of Treatment Health Maintenance Due Date Last Done Comments HPV Vaccines (1 - 3-dose series) 2013 Hepatitis B Vaccines (1 of 3 - 19+ 3-dose series) 2017 COVID-19 Vaccine ( - 2023-2 5 season) 2024 10/06/2021, 01/28/2021, 01/07/2021 Influenza Vaccine (#1) 2025 , 08/30/2022 Social Influencers of Health Screening 06/08/2025 06/08/2024 Cervical Cancer Screening: P ap Smear 12/23/2025 12/23/2022, 12/23/2022, 12/23/2022 Cholesterol Screening (Lipid Panel) 06/19/2029 06/19/2024 DTaP,Tdap,and Td Vaccines (2 - Td or Tdap) 08/30/2032 08/30/2022 Pneumococcal Vaccine: Pediatrics (0 to 5 Years) and At-Risk Patients (6 to 49 Years) Aged Out 06/10/2024 No longer eligible b ased on patient's age to complete this topic HIV Screening Completed 06/19/2024 Hepatitis C Screening Completed 06/19/2024 Depression Screening Completed 02/11/2025 HIB Vaccines Aged Out No longer eligi ble based on patient's age to complete this topic Hepatitis A Vaccines Aged Out No long er eligible based on patient's age to complete this topic IPV Vaccines Aged Out No longer eligi ble based on patient's age to complete this topic MMR Vaccines Aged Out No longer eligi ble based on patient's age to complete this topic Meningococcal ACWY Vaccine Aged Out N o longer eligible based on patient's age to complete this topic Meningococcal B Vaccine Aged Out No l onger eligible based on patient's age to complete this topic RSV Immunization Patients Under 20 months Aged Out No longer eligible b ased on patient's age to complete this topic Varicella Vaccines Aged Out No longer eligible based on patient's age to complete this topic Procedures Procedure Name Priority Date/Time Associated Diagnosis Comments HEPATITIS C ANTIBODY Routine 06/19/2024 9:24 AM EST Need for hepatitis C screening test HIV 1, 2 ANTIBODY, P24 ANTIGEN WITH REFLEX TO DIFFERENTIATION Routine 06/19/2024 9:24 AM EST Encounter for screening for HIV LIPID PANEL WITH REFLEX TO DIRECT LDL Routine 06/19/2024 9:24 AM EST Screening for lipid disorders HM PAP SMEAR Routine 12/23/2022 from Last 3 Months or Most Recently Relevant to Health Maintenance Results * Hepatitis C antibody (06/19/2024 9:24 AM EST) Hepatitis C Antibody Negative Negative LAB CHEMISTRY METHOD 06/19/2024 2:10 PM EST [facility] Blood Venous blood specimen / Unknown Venipuncture / Unknown 06/19/2024 9:24 AM EST 06/19/2024 9:24 AM EST us Ariel Rodríguez MD LAB BLOOD ORDERABLES F inal Result [facility] [address] [place] [address], [place] [phone] * HIV 1,2 antibody, p24 antigen with reflex to differentiation (06/19/2024 9:24 AM EST) [facility] HIV Combo AB/AG Negative Negative LAB CHEMISTRY METHOD 06/19/2024 2:10 PM [facility] Blood Venous blood specimen / Unknown Venipuncture / Unknown 06/19/2024 9:24 AM EST 06/19/2024 9:24 AM EST [facility] - 06/19/2024 2:10 PM EST This assay is a 4th generation assay allowing for earlier detection of HIV infection by detecting the presence of the HIV-1 p24 antigen as well as the traditional antibodies to HIV type 1 (including group O) and type 2. Use of a 4th generation assay is the current CDC recommendation for HIV screening. us Ariel Rodríguez MD LAB BLOOD ORDERABLES F inal Result Performing Organization Address [facility]/ZIP Co de Phone Number [facility] [address] [place] [address], [place] [phone] * (ABNORMAL) Lipid panel with reflex to direct LDL (06/19/2024 9:24 AM EST) [facility] Cholesterol 169 0 - 200 mg/dL LAB CHEMISTRY METHOD 06/19/2024 1:48 PM [facility] Triglycerides 169(H) 0 - 150 mg/dL LAB CHEMISTRY METHOD 06/19/2024 1:48 PM [facility] HDL 39(L) >=40 mg/dL LAB CHEMISTRY METHOD 06/19/2024 1:48 PM [facility] LDL Calculated 96 0 - 100 mg/dL LAB CHEMISTRY METHOD 06/19/2024 1:48 PM [facility] VLDL Cholesterol Gurpreet 33.8 mg/dL LAB CHEMISTRY METHOD 06/19/2024 1:[address] [facility] Non HDL Chol. (LDL+VLDL) 130 <145 mg/dL LAB CHEMISTRY METHOD 06/19/2024 1:[address] [facility] Chol/HDL Ratio 4.3 0.0 - 4.4 LAB CHEMISTRY METHOD 06/19/2024 1:[address] [facility] Blood Venous blood specimen / Unknown Venipuncture / Unknown 06/19/2024 9:24 AM EST 06/19/2024 9:24 AM EST Ariel Rodríguez MD LAB BLOOD ORDERABLES F inal Result [facility] [address] [place] [address], * Pap Smear (12/23/2022) Pap smear Negative, Abstracted Historical Provider HEALTH MAINTENANCE Final Result from Last 3 Months or Most Recently Relevant to Health Maintenance Insurance [facility] [employer] Care Teams Dining Room Attendant Cafeteria Relationship Specialty Start Date End Date Ariel Rodríguez MD [address] [place] [phone] PCP - General 08/15/22
--- OUTSIDE RECORDS SUMMARY | 2025-03-16 12:51 | XMS_ITS ---
Author Name [facility] Organization Unknown Care Team Organization Name Specialty Phone Email Start Date End Da te [facility] MICHELLE OSORIO Primary Care 03/23/2023 03/04/[address] [facility] Jose Lee Primary Care 09/21/2022 03/04/2024
[2025-03-16] MEDS: Fluorescein Sodium STRIP 1 STRIP EYE-RIGHT (13:33)
[2025-03-16] MEDS: Tetracaine HCl/PF 0.5% Oph Sol 4 ML DROPS 1 DROP EYE-RIGHT (13:33)
[2025-03-16 13:53] VITALS: BP 118/58; PULSE 74; RESP 16; TEMP 36.7; O2SAT 97
== END 2025-03-16 13:53 | disposition home or self-care (01) ==
PROVIDERS: Emergency Provider Emergency Medicine; PCP Internal Medicine
DX: S05.01XA Injury of conjunctiva and corneal abrasion without foreign body, right eye, initial encounter (principal); X58.XXXA Exposure to other specified factors, initial encounter; Y93.89 Activity, other specified; Y92.098 Other place in other non-institutional residence as the place of occurrence of the external cause; Y99.8 Other external cause status
CPT/HCPCS: 99282; 99283